=== PATIENT | male | born 1960 | race Caucasian/White ===

== ENCOUNTER 2018-05-31 19:11 | Emergency (ER) | payer BC ==
[~2018-05-31] VITALS: Ht 182.9 cm; Wt 102.3 kg
[~2018-05-31 19:11] MED LIST: ASPIRIN 81M81 MG/TA2 PO; VALIUM 2MG T2 MG/TAB PO; VALIUM 5MG T5 MG/TAB PO; ZANTAC 7575 MG PO
[2018-05-31 19:16] VITALS: TEMP 97.8
[2018-05-31] MEDS ORDERED: PRINZIDE 12.5 M1 TAB PO (20:02)
[2018-05-31] MEDS ORDERED: PRIL40 PO (20:03)
[2018-05-31] MEDS ORDERED: PERCOCET 325 MG1 TA2 PO (21:29)
[2018-05-31 21:40] VITALS: BP 124/73; PULSE 70
== END 2018-05-31 21:40 | disposition home or self-care (01) ==
LOC: COL.ER 19:11
DX: S20.212A Contusion of left front wall of thorax, initial encounter (principal); I10 Essential (primary) hypertension; K21.9 Gastro-esophageal reflux disease without esophagitis; W01.198A Fall on same level from slipping, tripping and stumbling with subsequent striking against other object, initial encounter; Y92.480 Sidewalk as the place of occurrence of the external cause

== ENCOUNTER 2018-11-19 10:58 | Emergency (ER) | payer BC ==
[~2018-11-19] VITALS: Ht 182.9 cm; Wt 97.7 kg
[~2018-11-19 10:58] MED LIST changes: +PERCOCET 325 MG1 TA2 PO; +PRIL40 PO; +PRINZIDE 12.5 M1 TAB PO
[2018-11-19 11:01] VITALS: TEMP 97.6
[2018-11-19 11:46] LABS: BASO % 0.3 % (0.0-2.0); EOS # 0.2 (0.0-0.7); EOS % 2.9 % (0-4.0); GRAN # 4.5 (1.4-6.5); GRAN % 63.7 % (42.2-75.2); HEMATOCRIT 45.4 % (42.0-52.0); LYMPH # 1.5 (1.2-3.4); LYMPH % 20.9 % (20.0-51.0); MEAN CELL VOLUME 89 fl (80.0-100.0); MEAN CORPUSCULAR HEMOGLOBIN 31 pg (27.0-31.0); MEAN CORPUSCULAR HGB CONC 35 g/dl (33.0-37.0); MEAN PLATELET VOLUME 12.3 fl (7.4-10.4); MONO # 0.8 (0.1-0.6); MONO % 11.8 % (1.7-9.3); PLATELET COUNT 142 K/mm3 (130-400); RED BLOOD COUNT 5.09 M/mm3 (4.20-5.60); REDCELL DISTRIBUTION WIDTH-CV 13.2 % (11.5-14.5)
[2018-11-19 11:54] LABS: PROTHROMBIN TIME 11.5 SECONDS (9.7-12.8)
[2018-11-19 11:57] LABS: PARTIAL THROMBOPLASTIN TIME 31.8 SECONDS (26.0-37.0)
[2018-11-19 11:59] LABS: ALANINE AMINOTRANSFERASE 28 U/L (21-72); ALBUMIN 4.5 gm/dL (3.5-5.0); ALKALINE PHOSPHATASE 94 U/L (50-136); ANION GAP 10 mmol/L (7-16); AST,SGOT 34 U/L (15-37); BILIRUBIN,TOTAL 0.9 mg/dL (0.0-1.0); BLOOD UREA NITROGEN 14 mg/dL (9-20); CALCIUM 9.7 mg/dL (8.4-10.2); CARBON DIOXIDE 25 mmol/L (22-30); CHLORIDE 105 mmol/L (98-107); GLUCOSE 95 mg/dL (74-106); LIPASE 71 U/L (23-300); SODIUM 140 mmol/L (137-145); TOTAL PROTEIN 8.1 gm/dL (6.4-8.2)
[2018-11-19 12:11] LABS: TROPONIN-I < 0.012 ng/mL (0.000-0.035)
[2018-11-19 12:19] LABS: D-DIMER < 200.00 ng/mLDDu (200-230)
[2018-11-19] MEDS ORDERED: PROTONIX 40MG T40 MG PO (14:22)
[2018-11-19 15:23] VITALS: BP 134/83; PULSE 56
== END 2018-11-19 15:24 | disposition home or self-care (01) ==
LOC: COL.ER 10:58
PROVIDERS: Emergency Medicine
DX: R07.89 Other chest pain (principal); I10 Essential (primary) hypertension; E78.5 Hyperlipidemia, unspecified

== ENCOUNTER 2019-01-09 07:53 | Day surgery (SDC) | payer BC ==
[~2019-01-09] VITALS: Ht 182.9 cm; Wt 94.7 kg
[~2019-01-09 07:53] MED LIST changes: +PROTONIX 40MG T40 MG PO
[2019-01-09 08:19] VITALS: BP 134/86; PULSE 69; TEMP 97.6
[2019-01-09 10:10] VITALS: BP 116/81; PULSE 62; TEMP 97.5
--- NOTE | 2019-01-09 10:10 | NUR ---
TO BAY 4 PER CART FROM [facility]. ALERT ORIENTED X3, TALKING TO STAFF AND . AMBULATED BACK TO RECLINER WITH ASSIST AND TOLERATED WELL RECEIVED WATER.
[2019-01-09 10:25] VITALS: BP 109/85; PULSE 69
--- NOTE | 2019-01-09 10:25 | NUR ---
DR BUCK INTO TO TALK WITH PATIENT AND HIS .
[2019-01-09 10:40] VITALS: BP 119/80; PULSE 63
--- NOTE | 2019-01-09 10:40 | NUR ---
C/O FEELING SO TIRED. RECEIVED APPLE SAUCE AND ATE 100%
--- NOTE | 2019-01-09 10:45 | NUR ---
RECEIVED DISCHARGE INSTRUCTIONS AND VERBALIZED UNDERSTANDING. DISCONINTUED IV AND INT- CATHETER INTACT
--- NOTE | 2019-01-09 11:00 | NUR ---
DISCHARGED PER WC BY NURSING STAFF TO PRIVATE CAR IN CARE OF - [id number].
== END 2019-01-09 11:05 | disposition home or self-care (01) ==
LOC: SDCO 07:53
DX: Z12.11 Encounter for screening for malignant neoplasm of colon (principal); D12.0 Benign neoplasm of cecum; K21.9 Gastro-esophageal reflux disease without esophagitis; K29.30 Chronic superficial gastritis without bleeding; E78.00 Pure hypercholesterolemia, unspecified; I10 Essential (primary) hypertension
CPT/HCPCS: J2250; J2405; J3010; J7030

== ENCOUNTER 2022-01-02 18:26 | Emergency (ER) | payer OTHER ==
[~2022-01-02] VITALS: Ht 182.9 cm; Wt 97.7 kg
[2022-01-02 18:47] VITALS: TEMP 97.1
[2022-01-02] MEDS ORDERED: AMOXICILLIN 8751 TAB PO (20:59)
[2022-01-02 21:07] VITALS: BP 141/81; PULSE 60
== END 2022-01-02 21:07 | disposition home or self-care (01) ==
LOC: COL.ER 18:26
DX: S61.451A Open bite of right hand, initial encounter (principal); Z28.310 Unvaccinated for COVID-19; Z23 Encounter for immunization; W54.0XXA Bitten by dog, initial encounter

== ENCOUNTER 2022-01-16 16:09 | Outpatient (RCR) | payer OTHER ==
[~2022-01-16] VITALS: Ht 182.9 cm; Wt 94.5 kg
[~2022-01-16 16:09] MED LIST changes: +AMOXICILLIN 8751 TAB PO
[2022-01-16 16:27] VITALS: BP 124/73; PULSE 66; TEMP 97.6
== END 2022-01-16 16:44 | disposition home or self-care (01) ==
LOC: EUO 16:09
DX: Z29.14 Encounter for prophylactic rabies immune globulin (principal)